=== PATIENT | female | born 1955 | race African-American/Black ===

== ENCOUNTER 2023-04-10 10:09 | Inpatient (IN) | payer MEDICARE, MEDICAID ==
[2023-04-10 13:18] VITALS: BMI 26.6
[2023-04-10] MEDS ORDERED: Lorazepam 1 MG TAB PO PRN (13:21)
[2023-04-10] MEDS ORDERED: Ondansetron ODT 4 MG TAB PO PRN (13:21)
[2023-04-10] MEDS ORDERED: Lorazepam 2 MG/ML VIAL IM PRN (13:21)
[2023-04-10] MEDS ORDERED: Electrolyte Replacement Protocol 1 EACH FS SCH (13:30)
[2023-04-10] MEDS ORDERED: Thiamine HCl 200 MG/2 ML VIAL SLOW IVP SCH (14:00)
[2023-04-10 14:13] LABS: #Monocytes 1.3 10x3/uL (0.0-1.1); #Neutrophils 9.1 10x3/uL (1.5-8.4); %Basophils 0.2 % (0.0-2.0); %Eosinophils 0.1 % (0.0-6.0); %Lymphocytes 17.7 % (18.0-47.0); %Monocytes 10.2 % (0.0-10.0); %Neutrophils 71.3 % (40.0-75.0); Hematocrit 26.1 % (34.9-44.5); Hemoglobin 9.3 g/dL (12.0-15.5); Mean Corpuscular HGB CONC 35.6 g/dL (32.0-36.0); Mean Corpuscular Hemoglobin 33.9 pg (27.0-33.0); Mean Corpuscular Volume 95.3 fl (81.6-98.3); Mean Platelet Volume 9.8 fl (7.4-10.4); Platelet Count 209 10x3/uL (150-450); RBC Distribution Width 12.9 % (11.5-14.5); Red Blood Cell (RBC) Count 2.74 10x6/uL (3.90-5.03); White Blood Cell (WBC) Count 12.7 10x3/uL (3.5-10.5)
[2023-04-10] MEDS: Sodium Chloride 0.9% 1,000 ML IV SCH (14:53)
[2023-04-10] MEDS: Heparin 5,000 UNITS/ML VIAL SC SCH ×2 (14:54→22:38)
[2023-04-10] MEDS: Magnesium 2 GM/50 ML(in water) 2 GM in Premix 1 BAG IVPB SCH ×2 (16:09→16:11)
[2023-04-10] MEDS: PHOS-NAK 1 PKT PACK PO SCH ×2 (16:10→22:30)
[2023-04-10 16:32] LABS: ALT (SGPT) 33 U/L (8-55); AST (SGOT) 70 U/L (5-34); Albumin 2.8 g/dL (3.4-4.8); Alkaline Phosphatase 119 U/L (40-110); Anion Gap 16 mmol/L (10-20); BUN (Urea Nitrogen) 6 mg/dL (9.8-20.1); Bilirubin, Total 0.7 mg/dL (0.2-1.2); Calc. Creatinine Clearance 83 mL/min (70-130); Calcium 8.4 mg/dL (7.8-10.44); Carbon Dioxide 13 mmol/L (23-31); Chloride 108 mmol/L (98-107); Estimated GFR 89; Globulin 4.2 g/dL (2.4-3.5); Glucose 107 mg/dL (80-115); Potassium 4.7 mmol/L (3.5-5.1); Sodium 132 mmol/L (136-145)
[2023-04-10 16:59] LABS: Bilirubin, Direct 0.2 mg/dL (0.1-0.3); Magnesium 1.4 mg/dL (1.6-2.6); Phosphorus 1.7 mg/dL (2.3-4.7)
[2023-04-10 19:53] LABS: Syphilis Antibody Index 15.12 S/CO (<1.00 Non-Reactive)
[2023-04-10 19:56] LABS: Syphilis Antibody INDETERMINATE (Nonreactive); Syphilis Titer Non-Reactive Titer (Negative)
[2023-04-10] MEDS: Famotidine/PF 20 mg/2ml Vial SLOW IVP SCH (22:30)
[2023-04-11] MEDS ORDERED: Acetaminophen 325 MG TAB PO SCH (00:45)
[2023-04-11] MEDS: Sodium Chloride 0.9% 1,000 ML IV SCH ×3 (01:07→22:29)
[2023-04-11] MEDS: PHOS-NAK 1 PKT PACK PO SCH ×2 (01:37→04:27)
[2023-04-11] MEDS ORDERED: Ibuprofen 200 MG TAB PO SCH (04:30)
[2023-04-11 05:16] LABS: #Basophils 0.1 10x3/uL (0.0-0.2); #Monocytes 1.5 10x3/uL (0.0-1.1); #Neutrophils 6.4 10x3/uL (1.5-8.4); %Basophils 0.9 % (0.0-2.0); %Eosinophils 0.3 % (0.0-6.0); %Lymphocytes 31.8 % (18.0-47.0); %Monocytes 12.8 % (0.0-10.0); %Neutrophils 53.8 % (40.0-75.0); Hematocrit 31.7 % (34.9-44.5); Hemoglobin 10.5 g/dL (12.0-15.5); Mean Corpuscular HGB CONC 33.1 g/dL (32.0-36.0); Mean Corpuscular Volume 96.6 fl (81.6-98.3); Platelet Count 239 10x3/uL (150-450); RBC Distribution Width 13.2 % (11.5-14.5); Red Blood Cell (RBC) Count 3.28 10x6/uL (3.90-5.03); White Blood Cell (WBC) Count 11.8 10x3/uL (3.5-10.5)
[2023-04-11 05:24] LABS: Phosphorus 1.9 mg/dL (2.3-4.7)
[2023-04-11 05:26] LABS: ALT (SGPT) 34 U/L (8-55); AST (SGOT) 65 U/L (5-34); Albumin 2.9 g/dL (3.4-4.8); Alkaline Phosphatase 129 U/L (40-110); Anion Gap 15 mmol/L (10-20); BUN (Urea Nitrogen) 6 mg/dL (9.8-20.1); Bilirubin, Total 0.8 mg/dL (0.2-1.2); Calc. Creatinine Clearance 91 mL/min (70-130); Calcium 8.5 mg/dL (7.8-10.44); Carbon Dioxide 17 mmol/L (23-31); Chloride 107 mmol/L (98-107); Estimated GFR 95; Globulin 4.2 g/dL (2.4-3.5); Glucose 85 mg/dL (80-115); Magnesium 2.5 mg/dL (1.6-2.6); Protein, Total 7.1 g/dL (5.8-8.1); Sodium 135 mmol/L (136-145)
[2023-04-11] MEDS: cefTRIAXone\\ROCEPHIN 1 GM in Sodium Chloride 0.9% 100 ML IVPB SCH (06:09)
[2023-04-11] MEDS: Multivit, Therapeutic 1 TAB PO SCH (08:36)
[2023-04-11] MEDS: Folic Acid 1 MG TAB PO SCH (08:37)
[2023-04-11] MEDS: Famotidine/PF 20 mg/2ml Vial SLOW IVP SCH ×2 (08:37→22:29)
[2023-04-11] MEDS: Thiamine HCl 200 MG/2 ML VIAL SLOW IVP SCH (08:41)
[2023-04-11] MEDS: Heparin 5,000 UNITS/ML VIAL SC SCH ×3 (10:46→22:32)
[2023-04-11] MEDS ORDERED: VANCOMYCIN 1.25 GM/250 ML BAG 1.25 GM in Premix 1 BAG IVPB SCH (11:15)
[2023-04-11] MEDS ORDERED: Vancomycin 1 GM in Premix 1 BAG IVPB SCH (21:00)
[2023-04-12] MEDS: Lorazepam 1 MG TAB PO PRN ×4 (02:32→23:46)
[2023-04-12] MEDS: cefTRIAXone\\ROCEPHIN 1 GM in Sodium Chloride 0.9% 100 ML IVPB SCH (05:01)
[2023-04-12] MEDS: Sodium Chloride 0.9% 1,000 ML IV SCH ×3 (05:01→22:30)
[2023-04-12] MEDS ORDERED: Lorazepam 2 MG/ML VIAL SLOW IVP SCH (08:00)
[2023-04-12] MEDS: Thiamine HCl 200 MG/2 ML VIAL SLOW IVP SCH (08:51)
[2023-04-12] MEDS: Famotidine/PF 20 mg/2ml Vial SLOW IVP SCH ×2 (08:53→22:22)
[2023-04-12] MEDS ORDERED: FLU VACC QS2023(65UP)/MF59C/PF 60 MCG/0.5 ML SYRINGE IM ONE (09:00)
[2023-04-12 10:44] LABS: #Basophils 0.1 10x3/uL (0.0-0.2); #Eosinphils 0.1 10x3/uL (0.0-0.5); #Monocytes 1.5 10x3/uL (0.0-1.1); #Neutrophils 4.9 10x3/uL (1.5-8.4); %Basophils 0.9 % (0.0-2.0); %Eosinophils 1.1 % (0.0-6.0); %Lymphocytes 36.8 % (18.0-47.0); %Monocytes 14.3 % (0.0-10.0); %Neutrophils 46.3 % (40.0-75.0); Hematocrit 39.3 % (34.9-44.5); Hemoglobin 12.9 g/dL (12.0-15.5); Mean Corpuscular HGB CONC 32.8 g/dL (32.0-36.0); Mean Corpuscular Volume 100.5 fl (81.6-98.3); Mean Platelet Volume 10.2 fl (7.4-10.4); Platelet Count 267 10x3/uL (150-450); RBC Distribution Width 13.5 % (11.5-14.5); Red Blood Cell (RBC) Count 3.91 10x6/uL (3.90-5.03); White Blood Cell (WBC) Count 10.7 10x3/uL (3.5-10.5)
[2023-04-12 10:51] LABS: Phosphorus 2.1 mg/dL (2.3-4.7)
[2023-04-12] MEDS: Heparin 5,000 UNITS/ML VIAL SC SCH ×3 (10:51→22:40)
[2023-04-12 10:54] LABS: ALT (SGPT) 32 U/L (8-55); AST (SGOT) 49 U/L (5-34); Albumin 3.2 g/dL (3.4-4.8); Alkaline Phosphatase 144 U/L (40-110); Anion Gap 18 mmol/L (10-20); BUN (Urea Nitrogen) 4 mg/dL (9.8-20.1); Bilirubin, Total 0.9 mg/dL (0.2-1.2); Calc. Creatinine Clearance 92 mL/min (70-130); Calcium 8.6 mg/dL (7.8-10.44); Carbon Dioxide 17 mmol/L (23-31); Chloride 105 mmol/L (98-107); Estimated GFR 95; Globulin 4.6 g/dL (2.4-3.5); Glucose 104 mg/dL (80-115); Potassium 3.9 mmol/L (3.5-5.1); Protein, Total 7.8 g/dL (5.8-8.1); Sodium 136 mmol/L (136-145)
[2023-04-12] MEDS: Multivit, Therapeutic 1 TAB PO SCH (11:38)
[2023-04-12] MEDS: Folic Acid 1 MG TAB PO SCH (11:38)
[2023-04-12] MEDS ORDERED: Vancomycin 1 GM in Sodium Chloride 0.9% 250 ML 250 ML IVPB SCH (12:00)
[2023-04-13 03:55] LABS: #Basophils 0.1 10x3/uL (0.0-0.2); #Eosinphils 0.2 10x3/uL (0.0-0.5); #Monocytes 1.4 10x3/uL (0.0-1.1); #Neutrophils 5.1 10x3/uL (1.5-8.4); %Eosinophils 1.9 % (0.0-6.0); %Lymphocytes 39.2 % (18.0-47.0); %Monocytes 12.4 % (0.0-10.0); %Neutrophils 45.1 % (40.0-75.0); Hematocrit 35.4 % (34.9-44.5); Hemoglobin 11.9 g/dL (12.0-15.5); Mean Corpuscular HGB CONC 33.6 g/dL (32.0-36.0); Mean Corpuscular Hemoglobin 32.4 pg (27.0-33.0); Mean Corpuscular Volume 96.5 fl (81.6-98.3); Mean Platelet Volume 9.6 fl (7.4-10.4); Platelet Count 299 10x3/uL (150-450); RBC Distribution Width 13.1 % (11.5-14.5); Red Blood Cell (RBC) Count 3.67 10x6/uL (3.90-5.03); White Blood Cell (WBC) Count 11.2 10x3/uL (3.5-10.5)
[2023-04-13 04:13] LABS: ALT (SGPT) 27 U/L (8-55); AST (SGOT) 37 U/L (5-34); Albumin 3.1 g/dL (3.4-4.8); Alkaline Phosphatase 135 U/L (40-110); Anion Gap 14 mmol/L (10-20); BUN (Urea Nitrogen) 6 mg/dL (9.8-20.1); Bilirubin, Total 0.7 mg/dL (0.2-1.2); Calc. Creatinine Clearance 97 mL/min (70-130); Calcium 9.2 mg/dL (7.8-10.44); Carbon Dioxide 18 mmol/L (23-31); Chloride 103 mmol/L (98-107); Estimated GFR 96; Globulin 4.9 g/dL (2.4-3.5); Glucose 109 mg/dL (80-115); Potassium 3.3 mmol/L (3.5-5.1); Sodium 132 mmol/L (136-145)
[2023-04-13] MEDS: Sodium Chloride 0.9% 1,000 ML IV SCH (04:21)
[2023-04-13] MEDS: cefTRIAXone\\ROCEPHIN 1 GM in Sodium Chloride 0.9% 100 ML IVPB SCH (06:37)
[2023-04-13] MEDS ORDERED: Potassium Chloride 20 MEQ TAB PO SCH ×2 (08:00→09:00)
[2023-04-13] MEDS: Furosemide 40 MG TAB PO SCH (09:18)
[2023-04-13] MEDS: Aspirin Chewable 81 MG TAB PO SCH (09:18)
[2023-04-13] MEDS: Folic Acid 1 MG TAB PO SCH (09:19)
[2023-04-13] MEDS: Famotidine/PF 20 mg/2ml Vial SLOW IVP SCH ×2 (09:19→20:36)
[2023-04-13] MEDS: Amlodipine 5 MG TAB PO SCH (09:19)
[2023-04-13] MEDS: Thiamine 100 MG TAB PO SCH (09:20)
[2023-04-13] MEDS: Multivit, Therapeutic 1 TAB PO SCH (09:20)
[2023-04-13] MEDS: Heparin 5,000 UNITS/ML VIAL SC SCH ×3 (09:29→20:36)
[2023-04-13 11:27] LABS: Vancomycin, Trough 6.5 ug/mL
[2023-04-13] MEDS: Vancomycin HCl 750 MG in Sodium Chloride 0.9% 250 ML 250 ML IVPB SCH (13:00)
[2023-04-14] MEDS: Lorazepam 0.5 MG TAB PO PRN ×2 (00:01→17:00)
[2023-04-14] MEDS: Vancomycin HCl 750 MG in Sodium Chloride 0.9% 250 ML 250 ML IVPB SCH (00:01)
[2023-04-14] MEDS: cefTRIAXone\\ROCEPHIN 1 GM in Sodium Chloride 0.9% 100 ML IVPB SCH (05:19)
[2023-04-14 06:01] LABS: #Basophils 0.1 10x3/uL (0.0-0.2); #Eosinphils 0.2 10x3/uL (0.0-0.5); #Monocytes 1.7 10x3/uL (0.0-1.1); #Neutrophils 3.7 10x3/uL (1.5-8.4); %Basophils 1.3 % (0.0-2.0); %Eosinophils 2.3 % (0.0-6.0); %Lymphocytes 42.8 % (18.0-47.0); %Monocytes 16.8 % (0.0-10.0); %Neutrophils 36.4 % (40.0-75.0); ALT (SGPT) 26 U/L (8-55); AST (SGOT) 40 U/L (5-34); Alkaline Phosphatase 122 U/L (40-110); Anion Gap 15 mmol/L (10-20); BUN (Urea Nitrogen) 6 mg/dL (9.8-20.1); Bilirubin, Total 0.8 mg/dL (0.2-1.2); Calc. Creatinine Clearance 83 mL/min (70-130); Calcium 9.5 mg/dL (7.8-10.44); Carbon Dioxide 20 mmol/L (23-31); Chloride 105 mmol/L (98-107); Estimated GFR 89; Globulin 4.7 g/dL (2.4-3.5); Glucose 92 mg/dL (80-115); Hematocrit 34.2 % (34.9-44.5); Hemoglobin 11.5 g/dL (12.0-15.5); Mean Corpuscular HGB CONC 33.6 g/dL (32.0-36.0); Mean Corpuscular Hemoglobin 32.9 pg (27.0-33.0); Mean Corpuscular Volume 97.7 fl (81.6-98.3); Mean Platelet Volume 10.1 fl (7.4-10.4); Platelet Count 317 10x3/uL (150-450); Potassium 3.9 mmol/L (3.5-5.1); Protein, Total 7.7 g/dL (5.8-8.1); RBC Distribution Width 13.4 % (11.5-14.5); Sodium 136 mmol/L (136-145); White Blood Cell (WBC) Count 10.2 10x3/uL (3.5-10.5)
[2023-04-14] MEDS: Furosemide 40 MG TAB PO SCH (09:00)
[2023-04-14] MEDS: Folic Acid 1 MG TAB PO SCH (09:00)
[2023-04-14] MEDS: Aspirin Chewable 81 MG TAB PO SCH (09:00)
[2023-04-14] MEDS: Amlodipine 5 MG TAB PO SCH (09:00)
[2023-04-14] MEDS: Thiamine 100 MG TAB PO SCH (09:00)
[2023-04-14] MEDS: Multivit, Therapeutic 1 TAB PO SCH (09:00)
[2023-04-14] MEDS: Famotidine/PF 20 mg/2ml Vial SLOW IVP SCH ×2 (09:00→20:36)
[2023-04-14] MEDS: Heparin 5,000 UNITS/ML VIAL SC SCH ×3 (09:00→20:37)
[2023-04-15 05:21] LABS: Anion Gap 14 mmol/L (10-20); BUN (Urea Nitrogen) 6 mg/dL (9.8-20.1); Calc. Creatinine Clearance 86 mL/min (70-130); Calcium 9.5 mg/dL (7.8-10.44); Carbon Dioxide 20 mmol/L (23-31); Chloride 104 mmol/L (98-107); Estimated GFR 92; Glucose 97 mg/dL (80-115); Potassium 3.4 mmol/L (3.5-5.1); Sodium 135 mmol/L (136-145)
[2023-04-15] MEDS: cefTRIAXone\\ROCEPHIN 1 GM in Sodium Chloride 0.9% 100 ML IVPB SCH (06:43)
[2023-04-15] MEDS ORDERED: Potassium Chloride 20 MEQ TAB PO SCH ×2 (08:00→10:00)
[2023-04-15] MEDS: Heparin 5,000 UNITS/ML VIAL SC SCH ×3 (09:00→22:15)
[2023-04-15] MEDS: Furosemide 40 MG TAB PO SCH (09:00)
[2023-04-15] MEDS: Multivit, Therapeutic 1 TAB PO SCH (09:00)
[2023-04-15] MEDS: Aspirin Chewable 81 MG TAB PO SCH (09:00)
[2023-04-15] MEDS: Amlodipine 5 MG TAB PO SCH (09:00)
[2023-04-15] MEDS: Famotidine/PF 20 mg/2ml Vial SLOW IVP SCH ×2 (09:00→22:15)
[2023-04-15] MEDS: Folic Acid 1 MG TAB PO SCH (12:49)
[2023-04-15] MEDS: Thiamine 100 MG TAB PO SCH (12:49)
[2023-04-16 04:22] LABS: Anion Gap 14 mmol/L (10-20); BUN (Urea Nitrogen) 8 mg/dL (9.8-20.1); Calc. Creatinine Clearance 82 mL/min (70-130); Carbon Dioxide 19 mmol/L (23-31); Chloride 104 mmol/L (98-107); Estimated GFR 88; Glucose 106 mg/dL (80-115); Potassium 4.3 mmol/L (3.5-5.1); Sodium 133 mmol/L (136-145)
[2023-04-16] MEDS: cefTRIAXone\\ROCEPHIN 1 GM in Sodium Chloride 0.9% 100 ML IVPB SCH (06:06)
[2023-04-16] MEDS: Multivit, Therapeutic 1 TAB PO SCH (09:36)
[2023-04-16] MEDS: Folic Acid 1 MG TAB PO SCH (09:37)
[2023-04-16] MEDS: Furosemide 40 MG TAB PO SCH (09:37)
[2023-04-16] MEDS: Aspirin Chewable 81 MG TAB PO SCH (09:37)
[2023-04-16] MEDS: Thiamine 100 MG TAB PO SCH (09:37)
[2023-04-16] MEDS: Famotidine/PF 20 mg/2ml Vial SLOW IVP SCH (09:38)
[2023-04-16] MEDS: Amlodipine 5 MG TAB PO SCH (09:38)
[2023-04-16] MEDS: Heparin 5,000 UNITS/ML VIAL SC SCH ×2 (09:46→16:18)
[2023-04-16 18:12] VITALS: BP 178/73; TEMP 98.4
== END 2023-04-16 19:30 | disposition home or self-care (01) | DRG 871 ==
LOC: CSHTELE 12:17
PROVIDERS: ADMIT Internal Medicine; ATTEND Internal Medicine
DX: A41.50 Gram-negative sepsis, unspecified (principal); G93.41 Metabolic encephalopathy; N39.0 Urinary tract infection, site not specified; E87.1 Hypo-osmolality and hyponatremia; F10.959 Alcohol use, unspecified with alcohol-induced psychotic disorder, unspecified; I10 Essential (primary) hypertension; I25.10 Atherosclerotic heart disease of native coronary artery without angina pectoris; E87.6 Hypokalemia; E78.5 Hyperlipidemia, unspecified; Z79.82 Long term (current) use of aspirin; Z86.73 Personal history of transient ischemic attack (TIA), and cerebral infarction without residual deficits; Z79.899 Other long term (current) drug therapy; Z95.1 Presence of aortocoronary bypass graft
CPT/HCPCS: 36415; 80048; 80053; 80202; 82248; 83735; 84100; 85025; 86593; 86780; 87040; J0696; J1644; J2060; J3370; J3411; J3475; J3490; J7050; S0028